=== PATIENT | female | born 1980 | race Caucasian/White ===

== ENCOUNTER 2016-06-21 12:01 | Emergency (ER) | payer OTHER ==
--- NOTE | ~2016-06-21 | CR63 ---
[facility] A Service of [facility] RADIOLOGY TEXT RESULTS PATIENT: LILY PULLIAM LOCATION: SED : 84 UNIT #: [id number] AGE: [address]: Sapna Mckeon APRN SEX: F ORDER DR: [id number] [place] [id number] E MR#: [id number] Acc #: [id number] NAME: LILY PULLIAM : 1980 SEX: F STUDY DATE/TIME: 06/21/2016 UNIT: SED ROOM: STUDY DESCRIPTION: CR Chest 2 View Attending Physician: Sapna Mckeon A.P.R.N. Ordering Physician: Sapna Mckeon A.P.R.N. Primary Care Physician: Primary Care Physician No MEDICAL IMAGING REPORT This report is preliminary unless electronic signature is present. EXAM Chest 2 views 06/21/2016 12:32 hours HISTORY 35-year-old with complaint of sore throat, cough and fever today. COMPARISON None FINDINGS Upright PA and lateral views of the chest demonstrate normal cardiac, mediastinal and hilar contours. The lungs are well expanded with scattered calcified granulomata. Question is raised of a small focus of airspace density posteriorly at the lung base seen only on the lateral film. This is possibly a small focus of lower lobe pneumonia but I cannot determine whether this is on the right at the left. IMPRESSION There is a small focus of airspace density projecting over the lower thoracic spine seen only on the lateral view which could represent lower lobe pneumonia. This is not apparent on the PA view. No effusions seen. Dictated by... Monica López M.D. THIS IS AN ELECTRONICALLY VERIFIED REPORT Monica López M.D. at 06/21/2016 2:29 PM SMM/karen TD: 06/21/2016 13:22 JOB #: [id number] [facility] A Service of [facility] RADIOLOGY TEXT RESULTS PATIENT: SHASHA,LILY LOCATION: SED : 82 UNIT #: [id number] AGE: [address]: Sapna Mckeon APRN SEX: F ORDER DR: MEDICAL IMAGING REPORT Page 1 of 1
== END 2016-06-21 13:10 | disposition home or self-care (01) ==
LOC: SED 12:01
DX: J18.9 Pneumonia, unspecified organism (principal); J02.0 Streptococcal pharyngitis; F17.200 Nicotine dependence, unspecified, uncomplicated
CPT/HCPCS: 71020; 87880; 99283